=== PATIENT | male | born 1955 | race Caucasian/White ===

== ENCOUNTER 2021-11-18 12:34 | Outpatient (CLI) | payer OTHER, SELFPAY ==
--- OUTSIDE RECORDS SUMMARY | 2021-10-18 09:52 | XMS_ITS | Continuity of Care Document ---
:1955 Author Social History Smoking Status Status Start Date End Date Date of Observat ion Never smoked tobacco July 13, 2021 6:16pm (finding) Additional Data Assigned Sex Male Problems Active Problems Medical Problem Onset Date Status Neutropenic fever Active Medications No known medications Advance Directives Advance Directive Response Recorded Date/Time Has patient completed a No July 13, 2021 6:16pm Health Care Directive? Insurance Providers Guarantor Hernandez Cordobaen Edilberto Address [address] [place] [id number] Contact Info. Home Phone: Payer Policy Id Coverage Subscriber's Subscriber Effective Expira tion Id Name Id Date Date [facility] [id number] Robert Cordoba [id number] G Plan of Treatment Future Tests Future scheduled test information is unavailable Pending Tests Pending diagnostic test information is unavailable Future Visits Future appointment information is unavailable Referrals to Other Providers Reason for Referral Start Provider Provider Contact Provider Address Referral Date Information Willi Quesada Work Phone: JONEL GARCIA JESUSITA Schneider MD L[facility] [phone] Future Procedures Future procedure information is unavailable Future Medications Future medication information is unavailable Patient Instructions Patient instructions are unavailable
== END 2021-11-18 12:35 | disposition home or self-care (01) ==
LOC: MRI 12:35
PROVIDERS: PCP Family Medicine; Visit Provider Internal Medicine
DX: C61 Malignant neoplasm of prostate (principal); C79.51 Secondary malignant neoplasm of bone
CPT/HCPCS: 72197; A9575

== ENCOUNTER 2024-01-13 12:26 | Emergency (ER) | payer MEDICARE, OTHER, SELFPAY ==
[2024-01-13 12:33] VITALS: BP 149/83; BP 153/102; PULSE 104; RESP 18; TEMP 35.2; O2SAT 94; BMI 35.6
--- NOTE | 2024-01-13 12:44 | ED_ITS ---
HPI - Chest Pain General Time Seen by Provider: 12:44 Date Seen: 01/13/24 Chief Complaint: Chest Pain Stated Complaint: Shortness of breath chest pressure upper back pain Time Seen by Provider: 01/13/24 12:44 Source: patient and RN notes reviewed Mode of arrival: ambulatory Limitations: no limitations History of Present Illness HPI narrative: Alejandro is a very pleasant 68-year-old gentleman with history of metastatic prostate cancer diagnosed 2021 status post chemo and radiation, family history of coronary arteries disease in father and brother, who comes to the [facility] for evaluation of fatigue, shortness of breath and chest pressure. Alejandro notes that today he road 9 miles on his bike which is not unusual for him. What is unusual is that he was feeling that something was not quite right and that he was very exhausted. He states that he was more winded than usual and that when he was finished she sat down and he could not quite catch his breath. He notes that lasted for 20 minutes. It was associated with some chest pressure but no pain. He did think that the chest pressure was worth with activity. Currently he is feeling like something is not quite right but he has no significant discomfort. He does note that yesterday he did have a lot of pain between his shoulder blades and that today when he lays down he feels a tightness in his back. Patient notes that he road 12 miles on his bike last week and that at that time he was also exhausted. He is worried that there is something going on with his heart. Over the past few days he has been moving a lot of boxes as he and his moved from [place] where they sold their cabin to [facility]. He does note that he was tired moving boxes. No recent falls or trauma. No recent illnesses fever cough cold congestion unusual lower extremity edema, history of connective tissue disease, family history of aortic dissection. In regards to his prostate cancer, he underwent chemo therapy and radiation at [place]. He is currently on formal therapy and does have follow-up appointments. Related Data Home Medications ?Medication ?Instructions ?Recorded ?Confirmed abiraterone 250 mg tablet tab PO 04/02/22 04/02/22 eplerenone 50 mg tablet 50 mg PO 04/02/22 04/02/22 gabapentin 100 mg capsule 100 mg PO 04/02/22 04/02/22 tamsulosin 0.4 mg capsule cap PO 04/02/22 04/02/22 semaglutide (weight loss) subcut 01/13/24 Allergies Allergy/AdvReac Type Severity Reaction Status Date / Time No Known Allergies Allergy Verified 04/02/22 10:27 Review of Systems Status of ROS Reports: 10 or more systems reviewed and unremarkable except as noted in History and below Const Reports: fatigue; Denies: fever or chills Eyes Denies: change in vision ENMT Denies: throat pain, neck pain, throat swelling, difficulty swallowing or nasal congestion Cardio Reports: chest pain (Described as pressure) and shortness of breath with exertion; Denies: palpitations, edema, swelling of feet/ankles or lightheadedness Resp Reports: shortness of breath; Denies: cough, wheezing or stridor GI Denies: abdominal pain, nausea, vomiting or difficulty swallowing Denies: painful urination Musculo Reports: back pain (Interscapular); Denies: neck pain Integ/Breast Denies: rash Neuro Denies: headache or numbness in extremities Endo Reports: fatigue Allergy/Immuno Denies: throat swelling or wheezing PFSH PFSH Medical History Prostate cancer ?C61 - Malignant neoplasm of prostate (ICD-10) Surgical History S/P foot surgery, right ?Z98.890 - Other specified postprocedural states (ICD-10) H/O hernia repair ?Z98.890 - Other specified postprocedural states (ICD-10) ?Z87.19 - Personal history of other diseases of the digestive system (ICD-10) History of appendectomy ?Z90.49 - Acquired absence of other specified parts of digestive tract (ICD- 10) Family History Other Stroke Social History Smoking Status: Never smoker Exam Narrative Exam Narrative: Alert and oriented. No acute distress. Here with his is very loving and supportive. Face symmetrical, mentation normal, speech is normal. Lungs are clear bilaterally. Heart with a regular rate and rhythm in the 90s. No additional heart sounds or murmurs are noted. Abdomen is obese soft nontender with out any evidence of pulsating mass. Lower extremities with no edema. No calf tendern ess. Pedal pulses are intact and symmetrical. He is able to move all of his extremities. Const Vital Signs, click to edit/add: Vital Signs - 24 hr 01/13/24 12:33 01/13/24 13:37 01/13/24 14:10 Temperature 95.3 F L Pulse Rate [Left Pulse Oximeter] 104 H 72 63 Respiratory Rate 18 20 18 Blood Pressure [Left Upper Arm] 153/102 H 147/96 H 157/101 H Blood Pressure [Right Upper Arm] 149/83 H Pulse Oximetry 94 96 92 Oxygen Delivery Method Room Air Room Air Room Air 01/13/24 15:00 Temperature Pulse Rate [Left Pulse Oximeter] 60 Respiratory Rate 18 Blood Pressure [Left Upper Arm] 165/106 H Blood Pressure [Right Upper Arm] Pulse Oximetry 98 Oxygen Delivery Method Room Air Documenting provider has reviewed patient's vital signs: yes Course Course ED Course: Differential diagnosis includes but is not limited to acute coronary event, angina, anxiety, pneumonia, aortic dissection, pleurisy, musculoskeletal pain, electrolyte imbalance. Whilst insert an IV and collect a CBC, comprehensive panel, troponin, blue dimer, CRP. Will also obtain EKG, chest x-ray and place patient on the conveyor monitor. Reevaluation(s) Reevaluation #1: Initial troponin is negative. Patient notes that he is not short of breath. He feels like perhaps slight pressure across his upper abdomen and chest but states that he is feeling much better than before. A 2nd troponin is pending. Reevaluation #2: Patient notes complete resolution of his discomfort. Second troponin is negative. EKG 2. Is reassuring. Without any evidence of acute ST or T-wave changes. Patient is wanting to use the restroom. I have asked him to walk around the nurse's station at a good speed after he uses the restroom. He does this any has no shortness of breath nor chest pain. Vital Signs Vital signs: Initial Vital Signs Temperature 95.3 F L 01/13/24 12:33 Temperature Source Temporal Artery Scan 01/13/24 12:33 Pulse Rate 104 H 01/13/24 12:33 Pulse Rhythm Regular 01/13/24 12:33 Pulse Strength 3+ Normal 01/13/24 12:33 Respiratory Rate 18 01/13/24 12:33 Blood Pressure 153/102 H 01/13/24 12:33 Blood Pressure Mean 119 H 01/13/24 12:33 Blood Pressure Position Sitting 01/13/24 12:33 Pulse Oximetry 94 01/13/24 12:33 Oxygen Delivery Method Room Air 01/13/24 12:33 Vital Signs Temperature 95.3 F L 01/13/24 12:33 Pulse Rate 104 H 01/13/24 12:33 Respiratory Rate 18 01/13/24 12:33 Blood Pressure 153/102 H 01/13/24 12:33 Pulse Oximetry 94 01/13/24 12:33 Oxygen Delivery Method Room Air 01/13/24 12:33 Temperature 95.3 F L 01/13/24 12:33 Pulse Rate 60 01/13/24 15:00 Respiratory Rate 18 01/13/24 15:00 Blood Pressure 165/106 H 01/13/24 15:00 Pulse Oximetry 98 01/13/24 15:00 Oxygen Delivery Method Room Air 01/13/24 15:00 MDM - Chest Pain MDM Narrative Medical decision making narrative: 1. Chest pain-patient has had resolution of his discomfort while in the emergency room. Alejandro had 2 negative cardiac enzymes and reassuring EKGs and thus do not think that he has had an acute coronary event today. He does have history that I do find concerning with chest pain and shortness of breath. after activity. Fortunately we were able to do a preauthorization and get him scheduled for a stress echo tomorrow at 1445. Given the fact that he is pain free at this time, will allow him to depart home and not be admitted to the hospital as was my plan when he was still experiencing some chest pressure. He is instructed to rest and not pursue any activity that would increase his heart rate. This would include prolonged walking, sexual activity, exciting movies, or bike riding. If he would have her return of chest pressure, back pain, shortness of breath or onset of new symptoms I would like him to return to the emergency room as soon as possible. He will take an extra baby aspirin tonight as he usually takes baby aspirin in the morning. I do note that his blood pressure is elevated but given the fact that he has a stress echo tomorrow will not treat his hypertension at this time. Gabby-dimer is negative, no evidence of widened mediastinum nor ongoing chest pain and therefore do not suspect PE nor aortic dissection. 2. Disposition-home at this time. Will return tomorrow for stress echo. Medical Records Data Attestation: I reviewed the patient's medical records. Lab Data Attestation: I reviewed the patient's lab results. Labs: Lab Results 01/13/24 01/13/24 01/13/24 Range/Units 13:20 13:49 15:20 WBC 4.32 L (4.50-11.00) K/uL RBC 4.85 (4.30-5.90) m/uL Hgb 14.4 (13.5-17.5) gm/dL Hct 41.4 (37.0-53.0) % MCV 85 (80-100) fL MCH 30 (26-34) pg MCHC 35 (32-36) gm/dL RDW Coeff of Luis 11.8 (11.5-15.5) % Plt Count 141 (140-440) K/uL Neut % (Auto) 70.8 (42.0-72.0) % Lymph % (Auto) 18.8 L (20-44) % [place] % (Auto) 7.6 (0.0-11.0) % Eos % (Auto) 2.3 (0.0-7.0) % Baso % (Auto) 0.5 (0.0-3.0) % Neut # (Auto) 3.10 (1.7-7.0) K/uL Lymph # (Auto) 0.80 L (0.90-2.90) K/uL [place] # (Auto) 0.30 (0.00-0.90) K/UL Eos # (Auto) 0.10 (0.00-0.50) K/uL Baso # (Auto) 0.00 (0.00-0.30) K/uL Abs Immat Gran (auto) 0.00 (0.00-0.30) K/uL Imm/Tot Granulo (auto) 0.0 % D-Dimer Quant (PE/DVT) 0.38 (0.00-0.50) ug/ml Sodium 139 (135-149) mmol/L Potassium 3.5 L (3.6-5.1) mmol/L Chloride 104 (96-114) mmol/L Carbon Dioxide 26 (20-32) mmol/L Anion Gap 9 (7-15) mEq/L BUN 15 (7-30) mg/dL Creatinine 0.9 (0.5-1.5) mg/dL Estimated Creat Clear 76.35 Estimated GFR 94 ml/min Glucose 97 (60-115) mg/dL Calcium 9.2 (8.4-10.6) mg/dL Magnesium 2.0 (1.5-2.6) mg/dL Total Bilirubin 1.0 (0.1-1.5) mg/dL AST 29 (12-35) U/L ALT 17 (4-50) U/L Alkaline Phosphatase 78 (40-150) U/L C-Reactive Protein < 0.5 L (0.5-1.0) mg/dL Total Protein 6.6 (6.0-8.3) g/dL Albumin 4.4 (3.3-5.0) g/dL SARS-CoV-2 (PCR) (Negative) POC Troponin I 0.00 L 0.01 (0.01-0.04) ng/ml 01/13/24 Range/Units Unknown WBC (4.50-11.00) K/uL RBC (4.30-5.90) m/uL Hgb (13.5-17.5) gm/dL Hct (37.0-53.0) % MCV (80-100) fL MCH (26-34) pg MCHC (32-36) gm/dL RDW Coeff of Luis (11.5-15.5) % Plt Count (140-440) K/uL Neut % (Auto) (42.0-72.0) % Lymph % (Auto) (20-44) % [place] % (Auto) (0.0-11.0) % Eos % (Auto) (0.0-7.0) % Baso % (Auto) (0.0-3.0) % Neut # (Auto) (1.7-7.0) K/uL Lymph # (Auto) (0.90-2.90) K/uL [place] # (Auto) (0.00-0.90) K/UL Eos # (Auto) (0.00-0.50) K/uL Baso # (Auto) (0.00-0.30) K/uL Abs Immat Gran (auto) (0.00-0.30) K/uL Imm/Tot Granulo (auto) % D-Dimer Quant (PE/DVT) (0.00-0.50) ug/ml Sodium (135-149) mmol/L Potassium (3.6-5.1) mmol/L Chloride (96-114) mmol/L Carbon Dioxide (20-32) mmol/L Anion Gap (7-15) mEq/L BUN (7-30) mg/dL Creatinine (0.5-1.5) mg/dL Estimated Creat Clear Estimated GFR ml/min Glucose (60-115) mg/dL Calcium (8.4-10.6) mg/dL Magnesium (1.5-2.6) mg/dL Total Bilirubin (0.1-1.5) mg/dL AST (12-35) U/L ALT (4-50) U/L Alkaline Phosphatase (40-150) U/L C-Reactive Protein (0.5-1.0) mg/dL Total Protein (6.0-8.3) g/dL Albumin (3.3-5.0) g/dL SARS-CoV-2 (PCR) Negative SARS-CoV-2 (Negative) POC Troponin I (0.01-0.04) ng/ml Imaging Data Chest x-ray: Attestation: I have reviewed the pertinent imaging results. My impression: No evidence of infiltrate, widened mediastinum. Radiologist's impression: Chest x-ray 07/13/2021 Findings/Impression: Cardiovascular and mediastinum: Normal heart size with aortic tortuosity and atherosclerotic calcification. Lungs and pleural space: Lungs are clear. No sign of infiltrate or mass. No sign of pleural effusion. No pneumothorax. Bones and soft tissues: No acute findings. ECG Data Attestation: I personally reviewed and interpreted this ECG as follows: ECG interpretation date: 01/13/24 Interpretation: EKG by my read shows sinus rhythm at a rate of 68. Nonspecific ST and T-wave abnormality noted but otherwise no acute ST changes to indicate level 1 heart event. QT and CA intervals within normal limits. EKG 2. By my read shows sinus rhythm at a rate of 66. No acute ST or T-wave changes are noted. QT 461 milliseconds. Discharge Plan Discharge Clinical Impression: Chest pain Qualifiers: Chest pain type: unspecified Qualified Code(s): R07.9 - Chest pain, unspecified Patient Disposition: Home, Self-Care Condition: Improved Instructions: Chest Pain (ED) Additional Instructions: No activity which could increased heart rate. This includes bike riding, sexual activity, walking for extended periods. Return to the emergency room for return of any of the symptoms you experienced today. Continue baby aspirin daily. Your stress test is scheduled for 01/13 with a 2:45pm arrival time. Please enter through the [facility] and check in at the assistant front office manager. Please follow the instructions that were given to you during your ER visit. If you have any questions or concerns, please call [phone]. Follow up appointment is scheduled at the [facility] on 01/18 with a 1:35pm arrival time. If you have any questions or need to reschedule, please call [phone]. Prescriptions: No Action abiraterone 250 mg tablet PO eplerenone 50 mg tablet 50 mg PO tamsulosin 0.4 mg capsule PO gabapentin 100 mg capsule 100 mg PO Patient Comments: TAKE ONE CAPSULE BY MOUTH AT BEDTIME FOR 7 DAYS THEN 2 CAPS FOR 7 DAYS THEN 3 CAPS AT BEDTIME semaglutide (weight loss) subcut Follow Up/Referrals: Willi Quesada MD [Primary Care Provider] - Stand Alone Forms: Vino Voloth Info Instructions
--- NOTE | 2024-01-13 12:56 | CRLHL7_ITS ---
For Patients: As a result of the Century Cures Act, medical imaging exams and procedure reports are released immediately into your electronic medical record. You may view this report before your referring provider. If you have questions, please contact your health care provider. Indication: Chest pain Technique: Chest 1 view Comparison: Chest x-ray 07/13/2021 Findings/Impression: Cardiovascular and mediastinum: Normal heart size with aortic tortuosity and atherosclerotic calcification. Lungs and pleural space: Lungs are clear. No sign of infiltrate or mass. No sign of pleural effusion. No pneumothorax. Bones and soft tissues: No acute findings. Dictated by Trent Arredondo MD @ 01/13/2024 1:19:54 PM (Electronically Signed)
[2024-01-13 13:33] LABS: Basophils Percent Auto 0.5 % (0.0-3.0); Eosinophils Percent Auto 2.3 % (0.0-7.0); Hematocrit 41.4 % (37.0-53.0); Hemoglobin* 14.4 gm/dL (13.5-17.5); Lymphocytes Percent Auto 18.8 % (20-44); Mean Corpuscular HGB Conc 35 gm/dL (32-36); Mean Corpuscular Hemoglobin 30 pg (26-34); Mean Corpuscular Volume 85 fL (80-100); Monocytes Percent Auto 7.6 % (0.0-11.0); Neutrophils Percent Auto 70.8 % (42.0-72.0); Platelet Count* 141 K/uL (140-440); RDW Coefficient of Variation % 11.8 % (11.5-15.5); Red Blood Count 4.85 m/uL (4.30-5.90); White Blood Count* 4.32 K/uL (4.50-11.00)
[2024-01-13 13:37] VITALS: BP 147/96; PULSE 72; RESP 20; O2SAT 96
[2024-01-13 13:41] LABS: Slide Review Reflex No
[2024-01-13 13:48] LABS: Albumin* 4.4 g/dL (3.3-5.0); Chloride* 104 mmol/L (96-114); Sodium* 139 mmol/L (135-149)
[2024-01-13 13:49] LABS: Potassium* 3.5 mmol/L (3.6-5.1)
[2024-01-13 13:50] LABS: Creatinine* 0.9 mg/dL (0.5-1.5); Est. Creatinine Clearance* 76.35; Estimated Glomerular Filt Rate 94 ml/min
[2024-01-13 13:51] LABS: Alanine Aminotransferase* 17 U/L (4-50); Alkaline Phosphatase* 78 U/L (40-150); Anion Gap 9 mEq/L (7-15); Aspartate Amino Transferase* 29 U/L (12-35); Carbon Dioxide* 26 mmol/L (20-32); D Dimer Quantitative* 0.38 ug/ml (0.00-0.50); Total Protein* 6.6 g/dL (6.0-8.3)
[2024-01-13 13:52] LABS: Blood Urea Nitrogen* 15 mg/dL (7-30); Calcium* 9.2 mg/dL (8.4-10.6); Glucose* 97 mg/dL (60-115)
[2024-01-13 13:57] LABS: C Reactive Protein* < 0.5 mg/dL (0.5-1.0)
[2024-01-13 14:10] VITALS: BP 157/101; PULSE 63; RESP 18; O2SAT 92
[2024-01-13 14:52] LABS: SARS PCR* Negative SARS-CoV-2 (Negative)
[2024-01-13 15:00] VITALS: BP 165/106; PULSE 60; RESP 18; O2SAT 98
[2024-01-13 15:43] LABS: Troponin, Point-of-Care* 0.01 ng/ml (0.01-0.04)
== END 2024-01-13 16:40 | disposition home or self-care (01) ==
PROVIDERS: Emergency Provider Family Medicine; PCP Family Medicine
DX: R07.9 Chest pain, unspecified (principal)
CPT/HCPCS: 36415; 71045; 80053; 83735; 84484; 85025; 85379; 86140; 87635; 93005; 99284; 99285

== ENCOUNTER 2024-01-14 14:45 | Outpatient (CLI) | payer MEDICARE, OTHER, SELFPAY ==
--- NOTE | 2024-01-14 15:39 | P.STN_ITS ---
Stress Test Note Date Date Seen: 01/14/24 Date of test: 01/14/24 Providers Referring provider: Jenny Mayen Primary care provider: Willi Quesada Stress test physician: Edel Vergara Stress Test Note Stress test ordered: Stress Echo Indication for test: Chest pain, dyspnea with exertion Stress test medicine: None Results discussion: Resting EKG: Sinus rhythm, 79 beats per minute. Resting blood pressure: 136/93 Stress test: Patient is consented on stress test ordered. Patient proceeded to perform a standard treadmill Aiden protocol exercise stress echo. Patient exercised to 9 minutes, requesting to stop due to shortness of breath and reachi ng at exercise capacity. He had no chest pain. Patient exercised to an equivalent of 10.3 Mets. He had a maximum heart rate of 139 beats per minute which was 106% of a calculated target of 130. Patient had a rate pressure product 24,742. There was no diagnostic ischemic change on the EKG, no arrhythmia. Echo images are pending to couple this for a full formal diagnostic. Patient's dyspnea resolved after exercise, did not seem to be out of proportion for level of activity observed. He did have a hypertensive response to exercise with a maximal blood pressure right after termination of ex ercise of 191/95. Blood pressure came down nicely after exercise. He is discharged in stable condition. Impression: Subjectively negative, objectively negative EKG portion of this stress test. Patient did exhibit hypertensive response with exercise. Follow up suggested: Patient will await final report from Cardiology, he does have a follow-up with his primary care physician in clinic on this next Thursday with Dr. Quesada. He is aware that Dr. Quesada will be able to see the results. I have counseled him on minimizing any activity or exertion in the interim. Should he have progressive shortness of breath or have recurrent chest pain in the interim, I have it advise he seek re-evaluation.
[2024-01-14 15:40] VITALS: BP 144/87; PULSE 88
== END 2024-01-14 14:46 | disposition home or self-care (01) ==
LOC: STRESS 14:49
PROVIDERS: PCP Family Medicine; Visit Provider Family Medicine
DX: R07.9 Chest pain, unspecified (principal); R06.09 Other forms of dyspnea; I10 Essential (primary) hypertension
CPT/HCPCS: 93016; 93325; 93351